=== PATIENT | male | born 1960 | race Caucasian/White ===

== ENCOUNTER 2016-07-05 06:44 | Emergency (ER) | payer OTHER ==
[~2016-07-05] VITALS: Ht 175.3 cm; Wt 97.0 kg
[~2016-07-05 06:44] MED LIST: CIPR500T4 PO; LOPE2CAP PO
[2016-07-05 06:47] VITALS: Ht 175.3 cm; Wt 97.0 kg
[2016-07-05] MEDS ORDERED: HYDROCODONE/APAP (5/325) TAB PO ONE (07:30)
--- NOTE | 2016-07-05 08:20 | ERD ---
ER Documentation Chief Complaint Date/Time DATE: 07/05/16 TIME: 08:18 Chief Complaint chest congestion , cough and back pain x 7 days HPI This 55-year-old male presents to the emergency department today complaining of cough, chest congestion, back pain, sore throat, earache and body aches and intermittent fevers for the past week. Patient states he has taken Tylenol. Denies any vomiting or diarrhea ROS All systems reviewed and are negative except as per history of present illness. Medications Home Meds Active Scripts Acetaminophen* (Tylophen*) 500 Mg Capsule, 1 CAP PO Q6H Y for PAIN AND OR ELEVATED TEMP, #30 CAP Prov:LILLY ORTIZ PA-C 07/05/16 Ibuprofen* (Motrin*) 800 Mg Tab, 800 MG PO Q6, #30 TAB Prov:LILLY ORTIZ PA-C 07/05/16 Fluticasone Propionate (Flonase Allergy Relief) 9.9 Ml [place].susp, 2 SPRAY NASAL DAILY, #1 BOTTLE TO EACH NOSTRIL Prov:LILLY ORTIZ PA-C 07/05/16 Cetirizine Hcl* (Zyrtec*) 10 Mg Capsule, 10 MG PO DAILY, #10 TAB.CHEW Prov:LILLY ORTIZ PA-C 07/05/16 Guaifenesin-Dextromethorphan* (Robitussin* DM) 100MG/10MG/5ML Syrup, 10 ML PO Q6H Y for COUGH for 5 Days, ML Prov:LILLY ORTIZ PA-C 07/05/16 Loperamide Hcl* (Imodium*) 2 Mg Capsule, 2 MG PO .AFTER EA LOOSE BM Y for DIARRHEA, #10 TAB Prov:HOLA PERES MD 01/24/15 Ciprofloxacin Hcl* (Ciprofloxacin Hcl*) 500 Mg Tablet, 500 MG PO BID for 3 Days , TAB Prov:HOLA PERES MD 01/24/15 Allergies Allergies: Coded Allergies: No Known Allergy (Unverified , 10/22/13) PMhx/Soc History of Surgery: No Anesthesia Reaction: No Hx Neurological Disorder: No Hx Respiratory Disorders: No Hx Cardiac Disorders: No Hx Psychiatric Problems: No Hx Miscellaneous Medical Probl: Yes (HX OF HTN,NOT ON MEDICATIONS) Hx Alcohol Use: Yes (OCCASSIONAL) Hx Substance Use: No Hx Tobacco Use: No Smoking Status: Never smoker Physical Exam Vitals Vital Signs Date Time Temp Pulse Resp B/P Pulse Ox O2 Delivery O2 Flow Rate FiO2 07/05/16 06:47 98.6 70 18 129/80 98 Physical Exam Const: Nontoxic-appearing Head: Atraumatic Eyes: Normal Conjunctiva ENT: Ears TMs normal. Nose no drainage. Throat no erythema no exudate Neck: Full range of motion..~ No meningismus. Resp: Clear to auscultation bilaterally. No absent breath sounds. No wheezing. Cardio: Regular rate and rhythm, no murmurs Abd: Soft, non tender, non distended. Normal bowel sounds Skin: No petechiae or rashes Back: No midline or flank tenderness left-sided paraspinal tenderness in thoracic region Ext: No cyanosis, or edema Neur: Awake and alert Psych: Normal Mood and Affect Results 24 hrs Current Medications Medications (Trade) Dose Ordered Sig/Esther Route PRN Reason Start Time Stop Time Status Last Admin Dose Admin Acetaminophen/ Hydrocodone Bitart ([place] (5/325)) 1 tab ONCE ONCE PO 07/05/16 07:30 07/05/16 07:31 DC 07/05/16 07:22 DIAGNOSTIC IMAGING REPORT Patient: HA[place] NEW : 1960 Age: 55 Sex: M MR #: [id number] DOS: 07/05/16 0000 Ordering MD: LILLY ORTIZ PA-[place] Location: [facility] Room/Bed: PROCEDURE: XR Chest. CLINICAL INDICATION: cough , fever x 1 week TECHNIQUE: PA and Lateral views of the chest were obtained. COMPARISON: None. FINDINGS: The soft tissues are normal. There are degenerative osteophytes in the thoracic spine. The left ventricle is enlarged. The cardiomediastinal silhouette and hilar structures are normal. The pulmonary vasculature is normal. Atherosclerotic calcifications are present in the aortic arch. The lungs are clear. The costophrenic angles are normal. IMPRESSION: 1. Left ventricular enlargement. 2. No evidence of active cardiopulmonary disease. 3. Atherosclerosis of the aortic arch. 4. Spondylosis of the thoracic spine. RPTAT:AAJJ Nishant Perera Physician Date Time Electronically viewed and signed by Nishant Perera Physician on 07/05/2016 09:11 JM/ CC: LILLY ORTIZ PA-C Procedures/MDM This 55-year-old male who presents to the emergency department today with influenza-like symptoms however given patient's age and reports of cough and chest congestion for the past 7 days it did obtain a chest x-ray and EKG Chest x-ray shows left ventricular enlargement. There is no evidence of active cardiopulmonary disease. There is atherosclerosis of the aortic arch. There is spondylosis of thoracic spine with some osteophytes. EKG read and interpreted by Dr. Pineda rate [address] elevation. No QT prolonging patient. Normal sinus rhythm. Low suspicion for acute AR, PE, pericarditis. Patient symptoms at this time is consistent with flulike symptoms and back pain.. He is afebrile and otherwise well-appearing. His vital signs are stable. I do not feel the patient requires laboratory workup or further imaging. Patient was given [place] here in the emergency department for his body aches reported feeling better. Patient will begin a prescription for Robitussin, Tylenol, Motrin, nasal saline, Zyrtec At this time the patient is stable for discharge and outpatient management. Patient should follow up with their PCP in the next 1-2 days. They may return to the emergency department sooner for any persistent or worsening of symptoms. Patient understood and agreed with the plan. Departure Diagnosis: Primary Impression: Flu-like symptoms Condition: Fair LILLY ORTIZ PA-C July 05, 2016 08:20
--- NOTE | 2016-07-05 09:11 | RADRPT ---
PROCEDURE: XR Chest. CLINICAL INDICATION: cough , fever x 1 week TECHNIQUE: PA and Lateral views of the chest were obtained. COMPARISON: None. FINDINGS: The soft tissues are normal. There are degenerative osteophytes in the thoracic spine. The left ve ntricle is enlarged. The cardiomediastinal silhouette and hilar structures are normal. The pulmonar y vasculature is normal. Atherosclerotic calcifications are present in the aortic arch. The lungs ar e clear. The costophrenic angles are normal. IMPRESSION: 1. Left ventricular enlargement. 2. No evidence of active cardiopulmonary disease. 3. Atherosclerosis of the aortic arch. 4. Spondylosis of the thoracic spine. RPTAT:AAJJ Physician Josh Date Time Electronically viewed and signed by Nishant Perera Physician on 07/05/2016 09:11 /
[2016-07-05] MEDS ORDERED: FLUT9.9S NASAL (09:21)
[2016-07-05] MEDS ORDERED: UDROBDM PO (09:21)
[2016-07-05] MEDS ORDERED: CETI10CA PO (09:21)
[2016-07-05] MEDS ORDERED: IBUP800T25 PO (09:22)
[2016-07-05] MEDS ORDERED: ACET500C5 PO (09:22)
[2016-07-05 09:38] VITALS: BP 116/72; PULSE 74; RESP 18
== END 2016-07-05 09:41 | disposition home or self-care (01) ==
LOC: FTE 06:44
DX: R05 Cough (principal); J02.9 Acute pharyngitis, unspecified; I10 Essential (primary) hypertension
CPT/HCPCS: 71010; 93005; Z7502; Z7610; 99284

== ENCOUNTER 2016-10-17 17:08 | Emergency (ER) | payer OTHER ==
[~2016-10-17] VITALS: Ht 175.3 cm; Wt 100.0 kg
[~2016-10-17 17:08] MED LIST changes: +ACET500C5 PO; +CETI10CA PO; +FLUT9.9S NASAL; +IBUP800T25 PO; +UDROBDM PO
[2016-10-17 17:12] VITALS: Ht 175.3 cm; Wt 100.0 kg
[2016-10-17] MEDS ORDERED: AMO500 PO (19:21)
[2016-10-17] MEDS ORDERED: NPH10OT BOTH EARS (19:21)
[2016-10-17] MEDS ORDERED: IBUP-1542 PO (19:22)
--- NOTE | 2016-10-17 19:45 | ERD ---
ER Documentation Chief Complaint Date/Time DATE: 10/17/16 TIME: 19:43 Chief Complaint L EAR PAIN FOR PAST 4 DAYS +DRAINAGE HPI This is a 55-year-old male presents here with left ear pain for the last 4 days. Left ear pain is throbbing in quality is nonradiating. Patient states that pain is becoming more constant and more severe. Patient has not taken anything for the pain. He does admit to discharge from his ear. He denies any fevers or chills. He denies any cough or cold symptoms. Patient denies chest pain or shortness of breath. ROS 12 point review of systems was done, all negative except per HPI. Medications Home Meds Active Scripts Ibuprofen* (Motrin*) 600 Mg Tab, 600 MG PO Q6, #30 TAB Prov:ABRAM SOTO 10/17/16 Neomycin/Polymyxin/Hydrocort* (Cortisporin* Otic) 10 Ml Susp, 4 DROP BOTH EARS QID for 7 Days, EA Prov:ABRAM SOTO 10/17/16 Amoxicillin* (Amoxicillin*) 500 Mg Cap, 500 MG PO TID for 10 Days, CAP Prov:ABRAM SOTO 10/17/16 Acetaminophen* (Tylophen*) 500 Mg Capsule, 1 CAP PO Q6H Y for PAIN AND OR ELEVATED TEMP, #30 CAP Prov:LILLY ORTIZ PA-C 07/05/16 Ibuprofen* (Motrin*) 800 Mg Tab, 800 MG PO Q6, #30 TAB Prov:LILLY ORTIZ PA-C 07/05/16 Fluticasone Propionate (Flonase Allergy Relief) 9.9 Ml [place].susp, 2 SPRAY NASAL DAILY, #1 BOTTLE TO EACH NOSTRIL Prov:LILLY ORTIZ PA-C 07/05/16 Cetirizine Hcl* (Zyrtec*) 10 Mg Capsule, 10 MG PO DAILY, #10 TAB.CHEW Prov:LILLY ORTIZ PA-C 07/05/16 Guaifenesin-Dextromethorphan* (Robitussin* DM) 100MG/10MG/5ML Syrup, 10 ML PO Q6H Y for COUGH for 5 Days, ML Prov:LILLY ORTIZ PA-C 07/05/16 Loperamide Hcl* (Imodium*) 2 Mg Capsule, 2 MG PO .AFTER EA LOOSE BM Y for DIARRHEA, #10 TAB Prov:HOLA PERES MD 01/24/15 Ciprofloxacin Hcl* (Ciprofloxacin Hcl*) 500 Mg Tablet, 500 MG PO BID for 3 Days , TAB Prov:HOLA PERES MD 01/24/15 Allergies Allergies: Coded Allergies: No Known Allergy (Unverified , 10/22/13) PMhx/Soc History of Surgery: No Anesthesia Reaction: No Hx Neurological Disorder: No Hx Respiratory Disorders: No Hx Cardiac Disorders: No Hx Psychiatric Problems: No Hx Miscellaneous Medical Probl: Yes (HX OF HTN,NOT ON MEDICATIONS) Hx Alcohol Use: Yes (OCCASSIONAL) Hx Substance Use: No Hx Tobacco Use: No Smoking Status: Never smoker Physical Exam Vitals Vital Signs Date Time Temp Pulse Resp B/P Pulse Ox O2 Delivery O2 Flow Rate FiO2 10/17/16 17:12 99.8 78 18 111/72 98 Physical Exam GENERAL: The patient is well-developed, well-nourished, in no acute distress. NECK: Cervical spine is non tender with no step off. Supple, no nuchal rigidity HEENT: Atraumatic. Pupils equal, round and reactive to light. Extraocular muscles are grossly intact. Conjunctivae pink, no discharge. left erythematous ear canal with discharge no mastoid tenderness, no TM perforation.. Tonsilar erythema with no exudates or uvular deviation. Clear rhinorrhea. RESPIRATORY: Clear to auscultation bilaterally. There are no rales, wheezes or rhonchi. HEART: Regular rate and rhythm. No murmurs, clicks, rubs or gallops. NEUROLOGIC: Alert and oriented. SKIN: There is no rash. The skin is warm and dry. Procedures/MDM This is a 55-year-old male presents to the ER with left ear pain and drainage. Patient does have otitis externa. Suspicion for mastoiditis or serous otitis media is low. Patient did not have any mastoid tenderness on physical examination. He will be sent home with amoxicillin and Cortisporin. He is to follow-up with his primary care doctor within 1-2 days return to ER sooner if symptoms worsen. My medical decision making shared with the patient he understands and agrees with plan. Departure Diagnosis: Primary Impression: Otitis externa Condition: Stable Patient Instructions: External Ear Infection (Adult) Additional Instructions: Llame al doctor MAANA y falguni anurag JU PARA DENTRO DE 1-2 RANKIN.Dgale a la secretaria que nosotros le instruimos hacer esta ju.Avise o llame si solorio condicin se empeora antes de la ju. Regresa aqui si peor o no mejor. ABRAM SOTO Oct 17, 2016 19:45
== END 2016-10-17 19:48 | disposition home or self-care (01) ==
LOC: FTE 17:08
DX: H60.92 Unspecified otitis externa, left ear (principal); I10 Essential (primary) hypertension
CPT/HCPCS: 99283

== ENCOUNTER 2016-10-25 09:17 | Emergency (ER) | payer OTHER ==
[~2016-10-25] VITALS: Ht 165.1 cm; Wt 98.0 kg
[~2016-10-25 09:17] MED LIST changes: +AMO500 PO; +IBUP-1542 PO; +NPH10OT BOTH EARS
[2016-10-25 09:19] VITALS: Ht 165.1 cm; Wt 98.0 kg
[2016-10-25] MEDS ORDERED: IBUP-1542 PO (09:47)
[2016-10-25] MEDS ORDERED: HYDR-906 PO (09:47)
[2016-10-25] MEDS ORDERED: PRED20TA PO ×2 (09:54→10:10)
[2016-10-25] MEDS ORDERED: ALBU18HF INHALATION ×2 (09:54→10:10)
--- NOTE | 2016-10-25 10:17 | ERD ---
ER Documentation Chief Complaint Date/Time DATE: 10/25/16 TIME: 10:15 Chief Complaint cough x 4 days HPI 56-year-old male with cough for last 4 days. Might have some slight wheeze. There is no history of fevers, and his cough is dry. Denies vomiting, shortness breath or chest pain.Hemoptysis ROS All systems reviewed and are negative except as per history of present illness. Medications Home Meds Active Scripts Albuterol Sulfate* (Ventolin HFA*) 18 Gm Hfa.aer.ad, 2 PUFF INHALATION Q4H, #1 INHALER Prov:TALHA BANKS MD 10/25/16 Prednisone* (Prednisone*) 20 Mg Tab, 40 MG PO DAILY for 4 Days, TAB Prov:TALHA BANKS MD 10/25/16 Ibuprofen* (Motrin*) 600 Mg Tab, 600 MG PO Q6, #30 TAB Prov:ABRAM SOTO 10/17/16 Neomycin/Polymyxin/Hydrocort* (Cortisporin* Otic) 10 Ml Susp, 4 DROP BOTH EARS QID for 7 Days, EA Prov:ABRAM SOTO 10/17/16 Amoxicillin* (Amoxicillin*) 500 Mg Cap, 500 MG PO TID for 10 Days, CAP Prov:ABRAM SOTO 10/17/16 Acetaminophen* (Tylophen*) 500 Mg Capsule, 1 CAP PO Q6H Y for PAIN AND OR ELEVATED TEMP, #30 CAP Prov:LILLY ORTIZ PA-C 07/05/16 Ibuprofen* (Motrin*) 800 Mg Tab, 800 MG PO Q6, #30 TAB Prov:LILLY ORTIZ PA-C 07/05/16 Fluticasone Propionate (Flonase Allergy Relief) 9.9 Ml [place].susp, 2 SPRAY NASAL DAILY, #1 BOTTLE TO EACH NOSTRIL Prov:LILLY ORTIZ PA-C 07/05/16 Cetirizine Hcl* (Zyrtec*) 10 Mg Capsule, 10 MG PO DAILY, #10 TAB.CHEW Prov:LILLY ORTIZ PA-C 07/05/16 Guaifenesin-Dextromethorphan* (Robitussin* DM) 100MG/10MG/5ML Syrup, 10 ML PO Q6H Y for COUGH for 5 Days, ML Prov:LILLY ORTIZ PA-C 07/05/16 Loperamide Hcl* (Imodium*) 2 Mg Capsule, 2 MG PO .AFTER EA LOOSE BM Y for DIARRHEA, #10 TAB Prov:HOLA PERES MD 01/24/15 Ciprofloxacin Hcl* (Ciprofloxacin Hcl*) 500 Mg Tablet, 500 MG PO BID for 3 Days , TAB Prov:HOLA PERES MD 01/24/15 Discontinued Scripts Albuterol Sulfate* (Ventolin HFA*) 18 Gm Hfa.aer.ad, 2 PUFF INHALATION Q4H, #1 INHALER Prov:TALHA BANKS MD 10/25/16 Prednisone* (Prednisone*) 20 Mg Tab, 40 MG PO DAILY for 4 Days, TAB Prov:TALHA BANKS MD 10/25/16 Ibuprofen* (Motrin*) 600 Mg Tab, 600 MG PO Q6, #30 TAB Prov:TALHA BANKS MD 10/25/16 Hydrocodone/Acetaminophen ([place] 5-325 Tablet) 1 Each Tablet, 1 TAB PO Q6H Y for PAIN, #7 TAB Prov:TALHA BANKS MD 10/25/16 Allergies Allergies: Coded Allergies: No Known Allergy (Unverified , 10/22/13) PMhx/Soc History of Surgery: No Anesthesia Reaction: No Hx Neurological Disorder: No Hx Respiratory Disorders: No Hx Cardiac Disorders: No Hx Psychiatric Problems: No Hx Miscellaneous Medical Probl: Yes (HX OF HTN,NOT ON MEDICATIONS) Hx Alcohol Use: Yes (OCCASSIONAL) Hx Substance Use: No Hx Tobacco Use: No Smoking Status: Never smoker Physical Exam Vitals Vital Signs Date Time Temp Pulse Resp B/P Pulse Ox O2 Delivery O2 Flow Rate FiO2 10/25/16 09:19 98.6 77 18 140/83 99 Physical Exam Const: []Alert, not ill-appearing. Head: Atraumatic Eyes: Normal Conjunctiva ENT: Normal External Ears, Nose and Mouth. Neck: Full range of motion..~ No meningismus. Resp: Clear to auscultation bilaterally. Slight forced wheeze without significant wheeze at rest no rales or retractions. Cardio: Regular rate and rhythm, no murmurs Abd: Soft, non tender, non distended. Normal bowel sounds Skin: No petechiae or rashes Back: No midline or flank tenderness Ext: No cyanosis, or edema. No calf swelling or Homans sign. Neur: Awake and alert Psych: Normal Mood and Affect Procedures/MDM Patient presents with 2 day history of URI symptoms and wheezing. Ends of respiratory distress or hypoxemia. Patient appears to have URI with mild wheezing and will treat with insulin and prednisone and further observation at home. The patient was stable with no new complaints during the ER course. Clinically, there is no current evidence to suggest meningitis, sepsis, acute abdomen, pneumonia, acute coronary syndrome, pulmonary embolism, or any other emergent condition appearing to require further evaluation or hospitalization. The patient should certainly return for any new or worsening symptoms per the aftercare instructions. They should otherwise follow-up with her primary care doctor for reevaluation this week. Departure Diagnosis: Primary Impression: Cough Condition: Stable Patient Instructions: Uri, Viral W/ Wheezing (Adult) Additional Instructions: probablamente un virus que dura 2-4 kulkarni. cheque otro everardo el proximo wally para mas simptomas- vomito, dolor, michel, problemas con respirando, o con solorio doctor primario. TALHA BANKS MD Oct 25, 2016 10:17
== END 2016-10-25 10:35 | disposition home or self-care (01) ==
LOC: FTE 09:17
DX: R05 Cough (principal); I10 Essential (primary) hypertension
CPT/HCPCS: 99284

== ENCOUNTER 2017-05-17 01:06 | Emergency (ER) | END 2017-05-17 01:39 | disposition home or self-care (01) ==

== ENCOUNTER 2017-05-21 08:22 | Emergency (ER) | END 2017-05-21 10:15 | disposition home or self-care (01) ==

== ENCOUNTER 2017-12-17 11:43 | Emergency (ER) | END 2017-12-17 14:30 | disposition home or self-care (01) ==